=== PATIENT | male | born 1985 | race Caucasian/White ===

== ENCOUNTER 2018-03-18 07:57 | Day surgery (SDC) | payer OTHER ==
[~2018-03-18 07:57] MED LIST: Lactated Ringers 1,000 ML IV SCH
[2018-03-18] MEDS ORDERED: fentaNYL 250 MCG/5 ML SDV ONE (09:03)
[2018-03-18] MEDS ORDERED: Propofol 200 MG/20 ML SDV ONE (09:03)
[2018-03-18] MEDS ORDERED: Ondansetron 4 MG/2 ML SDV ONE (09:03)
--- NOTE | 2018-03-18 09:07 | PCM.PREANE ---
Preanesthetic Assessment - Anesthesia/Transfusion/Family Hx Anesthesia History: Prior Anesthesia Without Reaction Family History of Anesthesia Reaction: No Transfusion History: No Prior Transfusion(s) Intubation History: Unknown - Review of Systems General: No Symptoms Pulmonary: No Symptoms Cardiovascular: No Symptoms Gastrointestinal: No Symptoms Neurological: No Symptoms Other: Reports: None - Physical Assessment NPO Status Date: 03/17/18 NPO Status Time: 23:00 O2 Sat by Pulse Oximetry: 98 Respiratory Rate: 16 Vital Signs: Last Vital Signs Temp 36.3 C 03/18/18 08:20 Pulse 67 03/18/18 08:20 Resp 16 03/18/18 08:20 BP 132/64 03/18/18 08:20 Pulse Ox 98 03/18/18 08:20 Height: 1.78 m Weight: 81.193 kg ASA Class: 2 Mental Status: Alert & Oriented x3 Airway Class: Mallampati = 2 Dentition: Reports: Normal Dentition (small (tiny chip) on front upper incisor) Thyro-Mental Finger Breadths: 3 Mouth Opening Finger Breadths: 2 ROM/Head Extension: Full Lungs: Clear to Auscultation, Normal Respiratory Effort Cardiovascular: Regular Rate, Regular Rhythm - Allergies Allergies/Adverse Reactions: Allergies Allergy/AdvReac Type Severity Reaction Status Date / Time alprazolam [From Xanax] Allergy Anxiety Verified 03/17/18 13:04 diazepam [From Valium] Allergy Anxiety Verified 03/17/18 13:04 midazolam [From Versed] Allergy Anxiety Verified 03/17/18 13:04 tetanus and diphtheria Allergy Anaphylactic Verified 03/17/18 12:58 toxoids Shock - Blood Blood Available: No - Anesthesia Plan Pre-Op Medication Ordered: None - Acknowledgements Anesthesia Type Planned: General Anesthesia Pt an Appropriate Candidate for the Planned Anesthesia: Yes Alternatives and Risks of Anesthesia Discussed w Pt/Guardian: Yes Pt/Guardian Understands and Agrees with Anesthesia Plan: Yes PreAnesthesia Questionnaire HEENT History: Reports: Other (See Below) Other HEENT History: bottom retainer Neurological History: Reports: Other (See Below) Other Neuro History: seizure due to overdose of wellbutrin during a trial states "doctor overdosed me" - Past Surgical History Head Surgeries/Procedures: Reports: None HEENT Surgical History: Reports: Other (See Below) Other HEENT Surgeries/Procedures: hx tampanoplasty GI Surgical History: Reports: Appendectomy, Other (See Below) Other GI Surgeries/Procedures: hx exploratory laparotomy for meckel's diverticulum & appendectomy - SUBSTANCE USE Smoking Status *Q: Former Smoker (quit 10/14) Recreational Drug Use History: No - HOME MEDS Home Medications: Home Meds . [No Known Home Meds] 03/17/18 [History] - CURRENT (IN HOUSE) MEDS Current Meds: Current Medications Lactated Ringer's (Ringers, Lactated) 1,000 mls @ 125 mls/hr IV ASDIRECTED [facility] Last Admin: 03/18/18 08:40 Dose: 125 mls/hr
[2018-03-18] MEDS ORDERED: Bupivacaine 0.25%/EPINEPHrine 1:200,000 10 ML SDV ONE (09:48)
[2018-03-18] MEDS ORDERED: Dexamethasone 4 MG/ML 5 ML MDV ONE (10:25)
[2018-03-18] MEDS ORDERED: Neostigmine Methylsulfate 1 MG/ML 5 ML Syringe ONE (10:39)
[2018-03-18] MEDS ORDERED: Glycopyrrolate 0.2 MG/ML SDV ONE (10:39)
[2018-03-18] MEDS ORDERED: Acetaminophen 1,000 MG in Premix Bag 1 BAG IV ONE (10:58)
--- NOTE | 2018-03-18 10:58 | PCM.OPNOTE ---
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 Patient was brought back to OR and laid supine on the operating table. General anesthesia was administered with an endotracheal tube. The patient was appropriately positioned prepped and draped. Alan Nicholas mouth guard was introduced and suspended to [place] stand. Left tonsillar fossa mucosa in the vicinity of the lesion was infiltrated with 0.25 percent Marcaine 1 in 200,000 epinephrine - total of 2.5 mls was used. The lesion was excised using monopolar cautery at a setting of 15 W. Base of the lesion was cauterized also with bipolar. Lesion was sent away for histopathology. Defect size was 1.1 x 7 mm. Mucosal edges were approximated with 2-0 Vicryl. Hemostasis was ensured. This concluded the procedure and patient was handed back to anesthesia for recovery Specimens : Excised lesion
== END 2018-03-18 11:45 | disposition home or self-care (01) ==
LOC: MW.SDS 07:57
PROVIDERS: ATTEND Otolaryngology
DX: D10.5 Benign neoplasm of other parts of oropharynx (principal); Z87.891 Personal history of nicotine dependence; Z88.7 Allergy status to serum and vaccine; Z88.8 Allergy status to other drugs, medicaments and biological substances
CPT/HCPCS: 42808; J0131; J1100; J2405; J2704; J3010; J3490; J7120